=== PATIENT | female | born 1975 | race Caucasian/White ===

== ENCOUNTER 2016-12-11 10:31 | Emergency (ER) | payer BC ==
[2016-12-11] MEDS ORDERED: ASPIRIN 81 MG CHEW TAB ONE (10:57)
[2016-12-11] MEDS ORDERED: KETOROLAC 30 MG/ML VIAL ONE (12:18)
== END 2016-12-11 14:01 | disposition home or self-care (01) ==
LOC: ER 10:31
DX: R07.2 Precordial pain (principal); R00.0 Tachycardia, unspecified; F41.1 Generalized anxiety disorder; E11.9 Type 2 diabetes mellitus without complications; I10 Essential (primary) hypertension; Z79.84 Long term (current) use of oral hypoglycemic drugs; Z79.899 Other long term (current) drug therapy
CPT/HCPCS: 36415; 71010; 80053; 82550; 83735; 84484; 85025; 85379; 85610; 85730; 93005; 96374